=== PATIENT | male | born 1945 | race Asian ===

== ENCOUNTER 2017-11-21 20:50 | Inpatient (IN) ==
[2017-11-21] MEDS ORDERED: SODIUM CHLORIDE 0.9% 1,000 ML IV STA (21:26)
[2017-11-21 21:58] LABS: Eosinophils # 0.4 10*3/uL (0.0-0.87); Eosinophils % 5.5 % (0.00-10.9); Immature Granulocytes % 0.7 %; Immature Granulocytes Absolute 0.05 #; Lymphocytes # 1.1 10*3/uL (1.4-4.0); Lymphocytes % 14.4 % (21.2-54.2); Mean Corpuscular HGB Conc 30.2 GM/DL (32-36); Mean Corpuscular Hemoglobin 32 PG (27-34); Mean Corpuscular Volume 107.2 FL (87-102); Mean Platelet Volume 11.2 FL (9.6-12.0); Monocytes # 0.6 10*3/uL (0.11-0.8); Monocytes % 8.6 % (1.7-12.7); Neutrophils # 5.3 10*3/uL (1.4-7.4); Neutrophils % 70.8 % (38.7-73.9); Platelet Count 123 T/CUMM (130-400); Red Blood Count 1.39 MC/CUMM (3.8-5.5); White Blood Count 7.4 T/CUMM (4-12)
[2017-11-21 22:13] LABS: Hematocrit 14.9 VOL% (42.0-52.0); Hemoglobin 4.5 GM/DL (14.0-18.0)
[2017-11-21 22:20] LABS: Alanine Aminotransferase 20 U/L (16-61); Albumin 2.3 G/DL (3.4-5.0); Alkaline Phosphatase 51 U/L (45-117); Aspartate Amino Transferase 15 U/L (0-37); Bilirubin,Total < 0.39 MG/DL (0.2-1.0); Blood Urea Nitrogen 60 MG/DL (7-18); Glucose 207 MG/DL (74-106); Osmolality,Calculated 303.3 MOS/KG (273-304); Potassium 4.5 MMOL/L (3.5-5.1); Sodium 141 MMOL/L (136-145); Total Protein 5.8 G/DL (6.4-8.3); Troponin I Only < 0.015 NG/ML (0.00-0.045)
[2017-11-21 22:34] LABS: INR 0.9; PT Patient Result 9.9 SECS; Partial Thromboplastin Time 28.4 SECS (0-40)
[2017-11-21 23:41] LABS: Apearance,Urine CLEAR (Clear); Bilirubin,Urine Negative (Negative); Blood, Urine Negative (Negative); Glucose,Urine (UA) Negative (Negative); Ketones,Urine Negative (Negative); Mucus,Urine Occasional /LPF (Occasional); Nitrite,Urine Negative (Negative); Protein,Urine Negative; Urine Color Straw (Yellow); Urine Specific Gravity 1.013 (1.001-1.035); Urine Urobilinogen < 2.0 EU/DL (0.2-1.0); WBC,Urine <1 /HPF (0-6)
[2017-11-22 00:31] LABS: Band Neutrophils 2 % (0-10); Eosinophils 6 % (0-10); Lymphocytes 17 % (20-55); Macrocytosis 2+; Platelet Estimate Decreased; Segmented Neutrophils 73 % (50-85); Total Cells Counted 100
[2017-11-22] MEDS ORDERED: SODIUM CHLORIDE 0.9% 1,000 ML IV PRN (01:10)
[2017-11-22] MEDS ORDERED: MORPHINE 4 MG/1 ML VIAL IV PRN (01:10)
[2017-11-22] MEDS ORDERED: ONDANSETRON 4 MG/2 ML VIAL IV PRN (01:10)
[2017-11-22] MEDS ORDERED: PROMETHAZINE 25 MG/1 ML VIAL IM PRN (01:10)
[2017-11-22] MEDS: SODIUM CHLORIDE 0.9% 1,000 ML IV SCH ×2 (01:40→20:54)
[2017-11-22] MEDS: PANTOPRAZOLE 40 MG VIAL IV SCH ×3 (01:53→20:57)
[2017-11-22 10:39] LABS: Hematocrit 24.7 VOL% (42.0-52.0)
[2017-11-22 10:41] LABS: Hemoglobin 8.1 GM/DL (14.0-18.0)
[2017-11-22] MEDS ORDERED: DEXTROSE 50% 25 GM/50 ML VIAL IV PRN (14:30)
[2017-11-22] MEDS ORDERED: GLUCAGON 1 MG VIAL IM PRN (14:30)
[2017-11-22 14:33] LABS: Hematocrit 23.1 VOL% (42.0-52.0); Hemoglobin 7.7 GM/DL (14.0-18.0)
[2017-11-22] MEDS: ACETAMINOPHEN 325 MG TABLET PO PRN (15:24)
[2017-11-22] MEDS: PIPERACILLIN/TAZOBACTAM 3,375 MG in SODIUM CHLORIDE 0.9% 100 ML IV SCH (15:24)
[2017-11-22] MEDS: CYANOCOBALAMIN 1000 MCG/1 ML VIAL IM SCH (17:05)
[2017-11-22] MEDS: INSULIN LISPRO 100 UNIT/ML SUBCUT SCH ×2 (17:35→21:00)
[2017-11-22] MEDS: ALBUTEROL/IPRATROPIUM 3 ML NEB RESP TX SCH (19:35)
[2017-11-22] MEDS ORDERED: LEVOFLOXACIN INJ 750 MG in PREMIX 1 EACH IV SCH (20:00)
[2017-11-22] MEDS: guaiFENesin/DM ER 600-30 MG TABLET PO SCH (20:56)
[2017-11-22 22:42] LABS: Hemoglobin 8.1 GM/DL (14.0-18.0)
[2017-11-23] MEDS: ALBUTEROL/IPRATROPIUM 3 ML NEB RESP TX SCH ×4 (00:51→19:57)
[2017-11-23] MEDS: PIPERACILLIN/TAZOBACTAM 3,375 MG in SODIUM CHLORIDE 0.9% 100 ML IV SCH ×2 (02:06→12:51)
[2017-11-23 05:03] LABS: Basophils % 0.5 % (0.0-0.8); Eosinophils # 0.7 10*3/uL (0.0-0.87); Eosinophils % 11.2 % (0.00-10.9); Hematocrit 28.2 VOL% (42.0-52.0); Hemoglobin 9.6 GM/DL (14.0-18.0); Immature Granulocytes % 0.8 %; Immature Granulocytes Absolute 0.05 #; Lymphocytes # 0.6 10*3/uL (1.4-4.0); Lymphocytes % 9.7 % (21.2-54.2); Mean Corpuscular Hemoglobin 31 PG (27-34); Mean Corpuscular Volume 92.2 FL (87-102); Mean Platelet Volume 11.1 FL (9.6-12.0); Monocytes # 0.5 10*3/uL (0.11-0.8); Monocytes % 8.6 % (1.7-12.7); Neutrophils # 4.2 10*3/uL (1.4-7.4); Neutrophils % 69.2 % (38.7-73.9); Platelet Count 90 T/CUMM (130-400); Red Blood Count 3.06 MC/CUMM (3.8-5.5); Red Cell Distribution Width 18.3 % (9.3-17.3); White Blood Count 6.1 T/CUMM (4-12)
[2017-11-23 05:28] LABS: Calcium 7.5 MG/DL (8.5-10.1)
[2017-11-23 05:29] LABS: Osmolality,Calculated 280.4 MOS/KG (273-304); Potassium 3.7 MMOL/L (3.5-5.1)
[2017-11-23 05:37] LABS: Eosinophils 13 % (0-10); Hypochromasia 1+; Lymphocytes 2 % (20-55); Nucleated Red Blood Cells 1 (0-5); Ovalocytes Slight; Platelet Estimate Decreased; Segmented Neutrophils 77 % (50-85); Total Cells Counted 100
[2017-11-23] MEDS: SODIUM CHLORIDE 0.9% 1,000 ML IV SCH ×2 (08:02→17:18)
[2017-11-23] MEDS: INSULIN LISPRO 100 UNIT/ML SUBCUT SCH ×4 (08:08→21:01)
[2017-11-23] MEDS: CYANOCOBALAMIN 1000 MCG/1 ML VIAL IM SCH (10:05)
[2017-11-23] MEDS: guaiFENesin/DM ER 600-30 MG TABLET PO SCH ×2 (12:00→21:01)
[2017-11-23] MEDS: PANTOPRAZOLE 40 MG VIAL IV SCH (12:00)
[2017-11-23] MEDS: CYANOCOBALAMIN 500 MCG TABLET PO SCH (12:00)
[2017-11-23] MEDS ORDERED: LIDOCAINE 2% 5 ML VIAL ONE (14:09)
[2017-11-23] MEDS ORDERED: PROPOFOL 200 MG/20 ML VIAL IV ONE (14:09)
[2017-11-23] MEDS: PANTOPRAZOLE 40 MG TABLET PO SCH (21:01)
[2017-11-23] MEDS ORDERED: traZODone 50 MG TABLET PO ONE (21:28)
[2017-11-24] MEDS: SODIUM CHLORIDE 0.9% 1,000 ML IV SCH ×2 (00:25→13:56)
[2017-11-24] MEDS: ALBUTEROL/IPRATROPIUM 3 ML NEB RESP TX SCH ×2 (00:55→08:00)
[2017-11-24 06:24] LABS: Basophils % 0.6 % (0.0-0.8); Eosinophils # 0.6 10*3/uL (0.0-0.87); Eosinophils % 12.5 % (0.00-10.9); Hematocrit 29.1 VOL% (42.0-52.0); Hemoglobin 9.6 GM/DL (14.0-18.0); Immature Granulocytes % 1.4 %; Immature Granulocytes Absolute 0.07 #; Lymphocytes # 0.5 10*3/uL (1.4-4.0); Lymphocytes % 10.1 % (21.2-54.2); Mean Corpuscular Hemoglobin 31 PG (27-34); Mean Corpuscular Volume 94.5 FL (87-102); Mean Platelet Volume 10.8 FL (9.6-12.0); Monocytes # 0.6 10*3/uL (0.11-0.8); Monocytes % 12.3 % (1.7-12.7); NRBC # 0.02 10*3/uL; Neutrophils # 3.1 10*3/uL (1.4-7.4); Neutrophils % 63.1 % (38.7-73.9); Platelet Count 100 T/CUMM (130-400); Red Blood Count 3.08 MC/CUMM (3.8-5.5); Red Cell Distribution Width 18.5 % (9.3-17.3)
[2017-11-24 06:47] LABS: Calcium 7.7 MG/DL (8.5-10.1); Osmolality,Calculated 282.1 MOS/KG (273-304); Potassium 4.2 MMOL/L (3.5-5.1)
[2017-11-24 07:34] LABS: Band Neutrophils 1 % (0-10); Eosinophils 12 % (0-10); Lymphocytes 6 % (20-55); Segmented Neutrophils 73 % (50-85); Total Cells Counted 100
[2017-11-24 07:35] LABS: Anisocytosis 1+; Hypochromasia 1+
[2017-11-24 07:36] LABS: Platelet Estimate Decreased
[2017-11-24 07:40] LABS: Macrocytosis 1+
[2017-11-24] MEDS: INSULIN LISPRO 100 UNIT/ML SUBCUT SCH ×3 (08:00→16:17)
[2017-11-24] MEDS: guaiFENesin/DM ER 600-30 MG TABLET PO SCH (09:31)
[2017-11-24] MEDS: CYANOCOBALAMIN 500 MCG TABLET PO SCH (09:32)
[2017-11-24] MEDS: ACETAMINOPHEN 325 MG TABLET PO PRN (09:33)
[2017-11-24] MEDS: PANTOPRAZOLE 40 MG TABLET PO SCH (09:34)
[2017-11-24] MEDS: CYANOCOBALAMIN 1000 MCG/1 ML VIAL IM SCH (09:34)
[2017-11-24 16:09] VITALS: BP 130/67
== END 2017-11-24 17:10 | disposition home or self-care (01) | DRG 812 ==
LOC: N.ED 20:50 → N.EDINP 23:38 → N.4E 11-22 00:58
PROVIDERS: ADMIT Internal Medicine; ATTEND Internal Medicine